=== PATIENT | male | born 1950 | race Caucasian/White ===

== ENCOUNTER 2017-07-24 14:23 | Emergency (ER) | payer BC ==
[2017-07-24] MEDS ORDERED: Cyclobenzaprine 10 MG Tab PO ONE (14:24)
[2017-07-24 14:43] VITALS: BP 176/101
[2017-07-24] MEDS ORDERED: Ketorolac 30 MG/ML SDV IM ONE (17:34)
--- NOTE | 2017-07-24 17:40 | EDM.PDOC ---
ED HPI GENERAL MEDICAL PROBLEM - General Chief Complaint: Back Pain or Injury Stated Complaint: back pain [phone] Time Seen by Provider: 07/24/17 17:26 Source of Information: Reports: Patient, RN, RN Notes Reviewed History Limitations: Reports: No Limitations - History of Present Illness INITIAL COMMENTS - FREE TEXT/NARRATIVE: Patient to ER with complaint of right sciatica pain down his right leg. The pain is sharp and shooting. He states he feels that he over did it at PT this week. Onset: Gradual Duration: Getting Worse Location: Reports: Back Quality: Reports: Ache Severity: Moderate Improves with: Reports: None Worsens with: Reports: None Associated Symptoms: Reports: No Other Symptoms Right Back Pain Score (Numeric/FACES): 8 - Related Data Allergies Allergy/AdvReac Type Severity Reaction Status Date / Time No Known Allergies Allergy Verified 02/04/16 08:36 Home Meds: Home Meds Tamsulosin [Flomax] 0.4 mg PO DAILY 07/24/17 [History] Past Medical History - Past Health History Medical/Surgical History: Denies Medical/Surgical History (Has not been to a doctor for a long time.) HEENT History: Reports: None Cardiovascular History: Reports: Hypertension Respiratory History: Reports: None Gastrointestinal History: Reports: None Genitourinary History: Reports: None Musculoskeletal History: Reports: None Neurological History: Reports: None Psychiatric History: Reports: None Endocrine/Metabolic History: Reports: None Hematologic History: Reports: None Immunologic History: Reports: None Oncologic (Cancer) History: Reports: None Dermatologic History: Reports: None - Past Surgical History HEENT Surgical History: Reports: Tonsillectomy, Other (See Below) Other HEENT Surgeries/Procedures: wisdom teeth GI Surgical History: Reports: None Male Surgical History: Reports: None Neurological Surgical History: Reports: Other (See Below) 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 ED EXAM,LOWER BACK PAIN/INJURY - Physical Exam Exam: See Below Exam Limited By: No Limitations General Appearance: Alert, WD/WN, No Apparent Distress Eye Exam: Bilateral Eye: Normal Inspection Ears: Normal External Exam, Normal Canal, Hearing Grossly Normal, Normal TMs Nose: Normal Inspection, Normal Mucosa, No Blood Throat/Mouth: Normal Inspection, Normal Lips, Normal Teeth, Normal Gums, Normal Oropharynx, Normal Voice, No Airway Compromise Head: Atraumatic, Normocephalic Neck: Normal Inspection, Supple, Non-Tender, Full Range of Motion Respiratory/Chest: Crackles (bases bilateral) Cardiovascular: Normal Peripheral Pulses, Regular Rate, Rhythm, No Edema, No Gallop, No JVD, No Murmur, No Rub GI/Abdominal: Normal Bowel Sounds, Soft, Non-Tender, No Organomegaly, No Distention, No Abnormal Bruit, No Mass (Male) Exam: Deferred Rectal (Males) Exam: Deferred Back Exam: Decreased Range of Motion, Other (right leg sciatica) Extremities: Normal Inspection, Normal Range of Motion, Non-Tender, No Pedal Edema, Normal Capillary Refill Neurological: Alert, Normal Mood/Affect, Normal Dorsiflexion, CN II-XII Intact, Normal Plantar Flexion, Normal Gait, Normal Reflexes, No Motor/Sensory Deficits , Oriented x 3 Psychiatric: Normal Affect, Normal Mood Skin Exam: Warm, Dry, Intact, Normal Color, No Rash Lymphatic: No Adenopathy Course - Vital Signs Last Recorded V/S: Last Vital Signs Temp 98.3 F 07/24/17 14:41 Pulse 86 07/24/17 14:41 Resp 16 07/24/17 14:41 BP 176/101 H 07/24/17 14:41 Pulse Ox 98 07/24/17 14:41 - Orders/Labs/Meds Meds: Medications Discontinued Medications Generic Name Dose Route Start Last Admin Trade Name Freq PRN Reason Stop Dose Admin Cyclobenzaprine HCl Confirm 07/24/17 18:08 07/24/17 18:14 Flexeril Administered 07/24/17 18:09 Not Given Dose 10 mg .ROUTE .STK-MED ONE Ketorolac Tromethamine 60 mg 07/24/17 17:34 07/24/17 17:47 Toradol IM 07/24/17 17:35 60 mg ONETIME ONE Administration Orphenadrine Citrate 60 mg 07/24/17 17:45 07/24/17 17:47 Norflex IM 60 mg Q12H EDDIE Administration Departure - Departure Time of Disposition: 18:00 Disposition: Home, Self-Care 01 Condition: Fair Clinical Impression: Muscle strain Sciatica Qualifiers: Laterality: right Qualified Code(s): M54.31 - Sciatica, right side - Discharge Information Instructions: Sciatica, [id number], Muscle Strain, [id number], Back Pain, Adult, [id number] Referrals: PCP,None [Primary Care Provider] - Forms: ED Department Discharge Additional Instructions: RX: Norflex, Diclofenac Follow up with your primary care facility Follow up with Physical Therapy Drink plenty of water
[2017-07-24] MEDS ORDERED: Cyclobenzaprine 10 MG Tab ONE (18:08)
== END 2017-07-24 18:06 | disposition home or self-care (01) ==
LOC: DL.ED 14:23
DX: M54.41 Lumbago with sciatica, right side (principal); T14.8XXA Other injury of unspecified body region, initial encounter; I10 Essential (primary) hypertension; X58.XXXA Exposure to other specified factors, initial encounter
CPT/HCPCS: 96372; 99283; A9270-GY; J1885; J2360

== ENCOUNTER 2017-08-26 14:33 | Emergency (ER) | payer BC ==
[2017-08-26] MEDS ORDERED: Morphine 2 MG/ML Syringe IM ONE (14:35)
[2017-08-26 14:36] VITALS: BP 154/100
[2017-08-26] MEDS ORDERED: Morphine 2 MG/ML Syringe IVPUSH ONE (15:23)
--- NOTE | 2017-08-28 10:12 | EDM.PDOC ---
ED HPI GENERAL MEDICAL PROBLEM - General Chief Complaint: Back Pain or Injury Stated Complaint: AMBULANCE Time Seen by Provider: 08/26/17 14:45 Source of Information: Reports: Patient, EMS, EMS Notes Reviewed, Family, RN, RN Notes Reviewed History Limitations: Reports: No Limitations - History of Present Illness INITIAL COMMENTS - FREE TEXT/NARRATIVE: Pt to ER with c/o severe low back pain with pain down the right leg. He presents per [facility]. Pt sig. other states he had a MRI scheduled in today. They were in the vehicle on their way to [place] for the MRI. The pain was so excruciating that he had her turn around and go home. Once they got home he got out of the car and was trying to get into the house when he fell to his knees in pain and could not get off the floor. The patient is in severe distress upon arrival. Onset: Gradual Duration: Constant Location: Reports: Back Quality: Reports: Sharp, Stabbing, Throbbing Severity: Severe Improves with: Reports: None Right Back Pain Score (Numeric/FACES): 10 - Related Data Allergies Allergy/AdvReac Type Severity Reaction Status Date / Time No Known Allergies Allergy Verified 08/26/17 14:36 Home Meds: Home Meds Tamsulosin [Flomax] 0.4 mg PO DAILY 07/24/17 [History] Past Medical History - Past Health History Medical/Surgical History: Denies Medical/Surgical History HEENT History: Reports: Impaired Vision Cardiovascular History: Reports: Hypertension Respiratory History: Reports: None Gastrointestinal History: Reports: None Genitourinary History: Reports: None Musculoskeletal History: Reports: Back Pain, Chronic, Neck Pain, Chronic Neurological History: Reports: None Psychiatric History: Reports: None Endocrine/Metabolic History: Reports: None Hematologic History: Reports: None Immunologic History: Reports: None Oncologic (Cancer) History: Reports: None Dermatologic History: Reports: None - Past Surgical History HEENT Surgical History: Reports: Tonsillectomy, Other (See Below) Other HEENT Surgeries/Procedures: wisdom teeth GI Surgical History: Reports: None Male Surgical History: Reports: None Neurological Surgical History: Reports: Other (See Below) 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 ED EXAM,LOWER BACK PAIN/INJURY - Physical Exam Exam: See Below Exam Limited By: Physical Impairment General Appearance: Alert, Severe Distress Eye Exam: Bilateral Eye: EOMI, Normal Inspection Ears: Normal External Exam, Hearing Grossly Normal Nose: Normal Inspection Throat/Mouth: Normal Inspection, Normal Voice, No Airway Compromise Head: Atraumatic, Normocephalic Neck: Normal Inspection Respiratory/Chest: No Respiratory Distress, Lungs Clear, Normal Breath Sounds, No Accessory Muscle Use Cardiovascular: Normal Peripheral Pulses, Regular Rate, Rhythm GI/Abdominal: Normal Bowel Sounds, Soft, Non-Tender, No Distention (Male) Exam: Deferred Rectal (Males) Exam: Deferred Back Exam: Normal Inspection, Decreased Range of Motion, Paraspinal Tenderness, Vertebral Tenderness Extremities: Pedal Edema (Right foot and lower leg +2 edema), Slow Capillary Refill, Joint Swelling, Leg Pain (right), Limited Range of Motion Neurological: Alert, Extensor Response to Pain, Flexor Response to Pain Psychiatric: Anxious, Tearful, Other (Very agitated ) Skin Exam: Warm, Dry, Intact, Normal Color Lymphatic: No Adenopathy Course - Vital Signs Last Recorded V/S: Last Vital Signs Temp 99.8 F 08/26/17 14:35 Pulse 117 H 08/26/17 14:35 Resp BP 154/100 H 08/26/17 14:35 Pulse Ox 99 08/26/17 14:35 - Orders/Labs/Meds Meds: Medications Discontinued Medications Generic Name Dose Route Start Last Admin Trade Name Elijahq PRN Reason Stop Dose Admin Diazepam 5 mg 08/26/17 15:45 08/26/17 15:52 Valium IVPUSH 08/26/17 15:46 5 mg ONETIME ONE Administration Morphine Sulfate 2 mg 08/26/17 14:35 08/26/17 14:48 Morphine IM 08/26/17 14:36 2 mg ONETIME ONE Administration Morphine Sulfate 2 mg 08/26/17 15:23 08/26/17 15:36 Morphine IVPUSH 08/26/17 15:24 2 mg ONETIME ONE Administration Orphenadrine Citrate 60 mg 08/26/17 14:45 08/26/17 14:48 Norflex IM 60 mg Q12H EDDIE Administration Departure - Departure Time of Disposition: 15:39 Disposition: DC/Tfer to Acute Hospital 02 Condition: Poor Clinical Impression: Cervical spinal cord compression, Acute weakness, Lumbar radiculopathy Sciatica Qualifiers: Laterality: right Qualified Code(s): M54.31 - Sciatica, right side - Discharge Information Referrals: PCP,Not In Area [Primary Care Provider] - Forms: ED Department Discharge, Interfacility Transfer LIA
== END 2017-08-26 16:00 ==
LOC: DL.ED 14:33
DX: M54.16 Radiculopathy, lumbar region (principal); S14.109A Unspecified injury at unspecified level of cervical spinal cord, initial encounter; M54.31 Sciatica, right side; R53.1 Weakness; I10 Essential (primary) hypertension; Z79.899 Other long term (current) drug therapy; W19.XXXA Unspecified fall, initial encounter
CPT/HCPCS: 96372; 96374; 96375; 99284; J2270; J2360; J3360

== ENCOUNTER 2020-08-05 13:22 | Emergency (ER) | payer BC ==
[2020-08-05 13:36] VITALS: PULSE 82
[2020-08-05 14:01] VITALS: BP 149/72
--- NOTE | 2020-08-05 14:21 | EDM.PDOC ---
ED HPI GENERAL MEDICAL PROBLEM - General Chief Complaint: Neuro Symptoms/Deficits Stated Complaint: AMBULAMCE Time Seen by Provider: 08/05/20 13:47 Source of Information: Reports: Patient History Limitations: Reports: No Limitations - History of Present Illness INITIAL COMMENTS - FREE TEXT/NARRATIVE: This 70 yo male patient was brought to the ED by [facility] due to diffuse right sided pain and immobility. The patient has a lengthy history of cervical spinal problems and surgeries. The patient reports that he fell about 1 week ago due to a screw falling out of his walker. The patient reports after the initial fall, he fell a second time. The patient did wait for about 1 week, but his right side continued to be painful to touch and the patient reports difficulties with movement. Duration: Week(s):, Constant Location: Reports: Neck, Upper Extremity, Right, Lower Extremity, Right, Generalized Quality: Reports: Ache, Sharp Severity: Moderate Improves with: Reports: None Worsens with: Reports: None Context: Reports: Other (Ground level fall) Associated Symptoms: Reports: Weakness Neck Pain Score (Numeric/FACES): 10 - Related Data Allergies Allergy/AdvReac Type Severity Reaction Status Date / Time No Known Allergies Allergy Verified 08/05/20 13:37 Home Meds: Home Meds Clindamycin HCl 300 mg PO TID 08/05/20 [History] Finasteride 5 mg PO DAILY 08/05/20 [History] Gabapentin [Neurontin] 300 mg PO BID 08/05/20 [History] PARoxetine [Paxil] 20 mg PO DAILY 08/05/20 [History] Potassium Chloride 20 meq PO DAILY 08/05/20 [History] Rosuvastatin [Crestor] 10 mg PO BEDTIME 08/05/20 [History] lisinopriL [Lisinopril] 5 mg PO DAILY 08/05/20 [History] Past Medical History - Past Health History Medical/Surgical History: Denies Medical/Surgical History HEENT History: Reports: Impaired Vision Cardiovascular History: Reports: Hypertension Respiratory History: Reports: None Gastrointestinal History: Reports: None Genitourinary History: Reports: None Musculoskeletal History: Reports: Back Pain, Chronic, Neck Pain, Chronic Neurological History: Reports: None Psychiatric History: Reports: None Endocrine/Metabolic History: Reports: None Hematologic History: Reports: None Immunologic History: Reports: None Oncologic (Cancer) History: Reports: None Dermatologic History: Reports: None - Past Surgical History HEENT Surgical History: Reports: Tonsillectomy, Other (See Below) Other HEENT Surgeries/Procedures: wisdom teeth Cardiovascular Surgical History: Reports: None GI Surgical History: Reports: None Male Surgical History: Reports: None Neurological Surgical History: Reports: Other (See Below) 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 ED EXAM, GENERAL - Physical Exam Exam: See Below Exam Limited By: No Limitations General Appearance: Alert, WD/WN, Moderate Distress Eye Exam: Bilateral Eye: EOMI, Normal Inspection, PERRL Ears: Normal External Exam, Normal Canal, Hearing Grossly Normal, Normal TMs Nose: Normal Inspection, Normal Mucosa, No Blood Throat/Mouth: Normal Inspection, Normal Lips, Normal Teeth, Normal Gums, Normal Oropharynx, Normal Voice, No Airway Compromise Head: Atraumatic, Normocephalic Neck: Limited Range of Motion Respiratory/Chest: No Respiratory Distress, Lungs Clear, Normal Breath Sounds, No Accessory Muscle Use, Chest Non-Tender Cardiovascular: Normal Peripheral Pulses, Regular Rate, Rhythm, No Edema, No Gallop, No JVD, No Murmur, No Rub GI/Abdominal: Normal Bowel Sounds, Soft, Non-Tender, No Organomegaly, No Distention, No Abnormal Bruit, No Mass (Male) Exam: Deferred Rectal (Males) Exam: Deferred Back Exam: Normal Inspection, Full Range of Motion, NT Extremities: Arm Pain (right shoulder and right elbow pain with palpation), Leg Pain (right hip pain with palpation) Neurological: Alert, Oriented, CN II-XII Intact, Normal Cognition, Normal Gait, Normal Reflexes, No Motor/Sensory Deficits Psychiatric: Normal Affect, Normal Mood Skin Exam: Warm, Dry, Intact, Normal Color, No Rash Lymphatic: No Adenopathy Course - Vital Signs Last Recorded V/S: Last Vital Signs Temp 37.0 C 08/05/20 13:32 Pulse 82 08/05/20 13:32 Resp 14 08/05/20 13:32 BP 149/72 H 08/05/20 14:00 Pulse Ox 98 08/05/20 13:32 - Orders/Labs/Meds Orders: Active Orders 24 hr Category Date Time Status Admission Diagnosis [ADT] Urgent ADT 08/05/20 16:04 Ordered Admission Status [Patient Status] [ADT] Routine ADT 08/05/20 16:04 Ordered COMPREHENSIVE METABOLIC PN,CMP [CHEM] Stat Lab 08/05/20 14:39 Ordered CORONAVIRUS COVID-19 RAPID [MOLEC] Urgent Lab 08/05/20 16:01 Received CULTURE BLOOD [BC] Stat Lab 08/05/20 15:57 Ordered CULTURE URINE [RM] Urgent Lab 08/05/20 14:39 Received Labs: Laboratory Tests 08/05/20 08/05/20 08/05/20 Range/Units 13:32 13:32 13:32 WBC 8.0 (5.0-10.0) 10^3/uL RBC 4.88 (4.6-6.2) 10^6/uL Hgb 14.0 (14.0-18.0) g/dL Hct 43.0 (40.0-54.0) % MCV 88.1 D (80-100) fL MCH 28.7 (27.0-34.0) pg MCHC 32.6 L (33.0-35.0) g/dL Plt Count 247 (150-450) 10^3/uL Neut % (Auto) 76.6 H (42.2-75.2) % Lymph % (Auto) 13.3 L (20.5-50.1) % Bowman % (Auto) 6.8 (2-8) % Eos % (Auto) 3.1 H (1.0-3.0) % Baso % (Auto) 0.2 (0.0-1.0) % Sodium 142 (136-145) mmol/L Potassium 3.9 (3.5-5.1) mmol/L Chloride 101 (98-107) mmol/L Carbon Dioxide 29 (21-32) mmol/L Anion Gap 15.9 H (7-13) mEq/L BUN 21 H (7-18) mg/dL Creatinine 0.81 (0.70-1.30) mg/dL Est Cr Clr Drug Dosing TNP Estimated GFR (MDRD) > 60 BUN/Creatinine Ratio 25.9 (No establ ref range) Glucose 159 H (70-99) mg/dL Lactic Acid 1.4 (0.4-2.0) mmol/L Calcium 9.1 (8.5-10.1) mg/dL Total Bilirubin 0.5 (0.2-1.0) mg/dL AST 30 (15-37) U/L ALT 49 (16-63) U/L Alkaline Phosphatase 103 (46-116) U/L Albumin 4.0 (3.4-5.0) g/dL Urine Color (YELLOW) Urine Appearance (CLEAR) Urine pH (5.0-9.0) Ur Specific [place] (1.005-1.030) Urine Protein (NEGATIVE) Urine Glucose (UA) (NEGATIVE) Urine Ketones (NEGATIVE) Urine Occult Blood (NEGATIVE) Urine Nitrite (NEGATIVE) Urine Bilirubin (NEGATIVE) Urine Urobilinogen (0.2-1.0) mg/dL Ur Leukocyte Esterase (NEGATIVE) Urine RBC /HPF Urine WBC (0-5/HPF) /HPF Ur Epithelial Cells (NOT SEEN) /HPF Urine Bacteria (0-FEW/HPF) /HPF 08/05/20 Range/Units 14:39 WBC (5.0-10.0) 10^3/uL RBC (4.6-6.2) 10^6/uL Hgb (14.0-18.0) g/dL Hct (40.0-54.0) % MCV (80-100) fL MCH (27.0-34.0) pg MCHC (33.0-35.0) g/dL Plt Count (150-450) 10^3/uL Neut % (Auto) (42.2-75.2) % Lymph % (Auto) (20.5-50.1) % Bow[place] % (Auto) (2-8) % Eos % (Auto) (1.0-3.0) % Baso % (Auto) (0.0-1.0) % Sodium (136-145) mmol/L Potassium (3.5-5.1) mmol/L Chloride (98-107) mmol/L Carbon Dioxide (21-32) mmol/L Anion Gap (7-13) mEq/L BUN (7-18) mg/dL Creatinine (0.70-1.30) mg/dL Est Cr Clr Drug Dosing Estimated GFR (MDRD) BUN/Creatinine Ratio (No establ ref range) Glucose (70-99) mg/dL Lactic Acid (0.4-2.0) mmol/L Calcium (8.5-10.1) mg/dL Total Bilirubin (0.2-1.0) mg/dL AST (15-37) U/L ALT (16-63) U/L Alkaline Phosphatase (46-116) U/L Albumin (3.4-5.0) g/dL Urine Color Dark yellow (YELLOW) Urine Appearance Slightly cloudy (CLEAR) Urine pH 5.5 (5.0-9.0) Ur Specific [place] >= 1.030 (1.005-1.030) Urine Protein Trace H (NEGATIVE) Urine Glucose (UA) Negative (NEGATIVE) Urine Ketones Negative (NEGATIVE) Urine Occult Blood Small H (NEGATIVE) Urine Nitrite Positive H (NEGATIVE) Urine Bilirubin Negative (NEGATIVE) Urine Urobilinogen 0.2 (0.2-1.0) mg/dL Ur Leukocyte Esterase Small H (NEGATIVE) Urine RBC 0-5 /HPF Urine WBC 20-30 H (0-5/HPF) /HPF Ur Epithelial Cells Few (NOT SEEN) /HPF Urine Bacteria Moderate H (0-FEW/HPF) /HPF Meds: Medications Discontinued Medications Generic Name Dose Route Start Last Admin Trade Name Freq PRN Reason Stop Dose Admin Ceftriaxone Sodium 1 gm/ 50 mls @ 100 mls/hr 08/05/20 16:02 08/05/20 16:16 Sodium Chloride IV 08/05/20 16:31 100 mls/hr ONETIME ONE Administration - Re-Assessments/Exams Free Text/Narrative Re-Assessment/Exam: 08/05/20 16:19 Discussed the x-ray results with the patient. The patient then reports increased pain in his right upper abdomen. At the time of this development, our CT scanner was out of order. Arrangements for transfer were initiated for further examination. Departure - Departure Time of Disposition: 16:07 Disposition: DC/Tfer to [facility] 02 Condition: Fair Clinical Impression: Decreased mobility, Right-sided abdominal pain of unknown cause UTI (urinary tract infection) Qualifiers: Urinary tract infection type: site unspecified Hematuria presence: with hematuria Qualified Code(s): N39.0 - Urinary tract infection, site not specified - Discharge Information *PRESCRIPTION DRUG MONITORING PROGRAM REVIEWED*: Not Applicable *COPY OF PRESCRIPTION DRUG MONITORING REPORT IN PATIENT PARISA: Not Applicable Care Plan Goals: Discussed the patient's history, lab results, examination, x-ray and CT results with Dr Salomon ([facility]). Dr. Salomon accepted the patient for continued evaluation and further management through [facility]. The patient will be transported by [facility]. Sepsis Event Note (ED) - Evaluation Sepsis Screening Result: No Definite Risk - Focused Exam Vital Signs: Vital Signs Temp Pulse Resp BP Pulse Ox 08/05/20 14:00 149/72 H 08/05/20 13:32 37.0 C 82 14 150/111 H 98 - My Orders Last 24 Hours: My Active Orders 08/05/20 14:39 COMPREHENSIVE METABOLIC PN,CMP [CHEM] Stat CULTURE URINE [RM] Urgent 08/05/20 15:57 CULTURE BLOOD [BC] Stat 08/05/20 16:01 CORONAVIRUS COVID-19 RAPID [MOLEC] Urgent 08/05/20 16:04 Admission Diagnosis [ADT] Urgent Admission Status [Patient Status] [ADT] Routine - Assessment/Plan Last 24 Hours: My Active Orders 08/05/20 14:39 COMPREHENSIVE METABOLIC PN,CMP [CHEM] Stat CULTURE URINE [RM] Urgent 08/05/20 15:57 CULTURE BLOOD [BC] Stat 08/05/20 16:01 CORONAVIRUS COVID-19 RAPID [MOLEC] Urgent 08/05/20 16:04 Admission Diagnosis [ADT] Urgent Admission Status [Patient Status] [ADT] Routine
--- NOTE | 2020-08-05 14:28 | CR ---
EXAMINATION: Shoulder Comp Rt SEX: Male AGE: 70 years CLINICAL HISTORY: 70-year-old , partially incapacitated (cervical spine lesion) male injured in ground-level fall. Interpretation: "Winged" scapula. *No fractures proximal right humeral, scapula, right clavicle or underlying ribs upper right hemithorax. Right lung apex clear. Normal glenohumeral articulation i.e. no shoulder dislocation. Acromioclavicular joint is intact.
--- NOTE | 2020-08-05 14:34 | CT ---
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 TECHNIQUE: Volume acquisition of data emergency unenhanced CT scan of the lower lumbar spine, pelvis and both hips obtained with the patient lying supine on the Siemens multi slice scanner [place], [place]. All data archived PACS system for storage, reformatting axial/sagittal/coronal planes and study (soft tissue/bone windows). Interpretation: 1. Chronic multilevel lower lumbar disc disease. Symmetric normal spacing SI joints without arthritic degeneration. 2. Generalized mild osteopenia for age and gender. 3. *No fracture or dislocation bony pelvis or either hip (subcapsular lucencies both femoral neck suggests necrosis). 4. Symmetric spacing normal-appearing hip joints without appreciable arthritic degenerative change. CONCLUSION: No fracture pelvis or either hip. Multilevel lower lumbar disc disease.
--- NOTE | 2020-08-05 14:36 | CR ---
EXAMINATION: Elbow Min 2V Rt SEX: Male AGE: 70 years CLINICAL HISTORY: 70-year-old male injured right elbow ground level fall. Interpretation: 1. Arthritic spur arising off the olecranon process proximal right ulna and medial epicondyle distal humerus. 2. No sign of right elbow joint effusion, acute fracture or dislocation. 3. No foreign bodies.
--- NOTE | 2020-08-05 14:44 | CT ---
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 Several surgeries cervical cord AVM. Scan technique: Volume acquisition of data emergency unenhanced CT scan cervical spine obtained with the patient lying supine on the Siemens multislice scanner [place], [place]. All data archived in the PACS system for storage, reformatting axial/sagittal/coronal planes and study. Interpretation: 1. Symmetric clear pneumatization of the mastoid sinuses. No basal skull fracture. Normal TMJs. 2. Evidence of extensive anterior fusion (C3-C6) and posterior laminectomy with orthopedic fusion (Monson rods and anchoring bolts C2-C7) cervical spine. Anatomic alignment. 3. Dense reactive atlantoaxial sclerosis. Loss of the intervertebral disc spacing and sclerosis C3-C4, C4-5 and C5-6. 4. No prevertebral soft tissue swelling, acute cervical or upper thoracic spine (first 2 vertebra) fracture or dislocation. 5. Normal height and alignment of the first 2 thoracic vertebra. Lung apices clear. CONCLUSION: Extensive postoperative changes cervical spine (anteriorly and posteriorly). No sign of acute cervical fracture or dislocation.
[2020-08-05 15:08] LABS: ANION GAP 15.9 mEq/L (7-13); CHLORIDE,CL 101 mmol/L (98-107); SODIUM,NA 142 mmol/L (136-145)
[2020-08-05] MEDS ORDERED: cefTRIAXone 1 GM in Sodium Chloride 0.9% 50 ML IV ONE (16:02)
--- NOTE | 2020-08-05 16:27 | PCM.SN.2 ---
- Free Text/Narrative Note: I was called to see pt for admission. 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 Pt has B leg splint to assist him walking. Pt fell 3 days ago to his RT side. He complained of diffuse pain to RT side. His initial work up including CT neck, shoulder XR and CT pelvis without c ontrast: all showed no acute findings. Labs are inacceptable range except + UA. on exam pt has splint both legs. his B legs are weak ( unchnaged per pt) hip no tenderness. Abdomen exam showed distended abdomen on RT side: very tender to touch. Pt states that this a new finding. A/P fall with trauma to RT side including abdomen. Pt needs CT scan abdomen to R/O any abdominal pathology. CT scan is currently down. Pt to be diverted to have CT done. Pt and his agree with plan.
== END 2020-08-05 17:38 ==
LOC: DL.ED 13:22
DX: N39.0 Urinary tract infection, site not specified (principal); R31.9 Hematuria, unspecified; R53.2 Functional quadriplegia; I10 Essential (primary) hypertension; Z79.899 Other long term (current) drug therapy; Z20.822 Contact with and (suspected) exposure to COVID-19
CPT/HCPCS: 36415; 72125; 72192; 73030-RT; 73080-RT; 80053; 81001; 83605; 85025; 87040; 87077; 87086; 99284; 99285-25; J0696; U0002